=== PATIENT | female | born 1960 | race Caucasian/White ===

== ENCOUNTER → 2023-11-29 08:03 | Outpatient (REF) | payer OTHER, SELFPAY | LOC: HWRAD 08:03 | PROVIDERS: ATTENDING PHYSICIAN Family Medicine | DX: Z13.820 Encounter for screening for osteoporosis (principal); R91.1 Solitary pulmonary nodule; R10.11 Right upper quadrant pain | CPT/HCPCS: 71250; 74150; 77080 ==

== ENCOUNTER 2024-01-24 23:53 | Emergency (ER) | payer OTHER, SELFPAY ==
[2024-01-25 00:04] VITALS: BP 110/73
--- NOTE | 2024-01-25 00:39 | ED.GENMED ---
History of Present Illness
General
Chief Complaint: Abdominal Pain
Source: patient
Exam Limitations: none
Time Seen by Provider: 01/25/24 00:10
History of Present Illness
History of Present Illness:
This is a 63 year old female that comes in with c/o right upper abd pain. States that this has been going on for years. States that since Monday the pain has been constant. States that if she sneezes sometimes she feels that something pops out and
she pushes this back in and the pain goes away. Patient recently had a CT scan of the abd pelvis, Bone density scan and an US in the past. Denies any fever, chills, chest pain, SOB, nausea, vomiting, diarrhea, headache, dizziness, urinary burning.
Past History
Past History
ED Past Medical History: GERD and Other (Scoliosis, Osteoporosis); Negative Asthma, HTN, Hypercholesterolemia or NIDDM
ED Past Surgical History: Tonsilectomy
Social History
Tobacco: Non-smoker
Alcohol: Occasional
Personal:
Living: with family
Employment: Employed (Desk work at school)
Review of Systems
Review of Systems
All Other Systems: ROS reviewed and negative except as documented in HPI and ROS
Constitutional: Reports no symptoms; Denies fever or chills
EENT: Reports no symptoms
Respiratory: Reports no symptoms; Denies cough or trouble breathing
Cardiac: Reports no symptoms; Denies chest pain
ABD/GI: Reports abdominal pain (RUQ); Denies nausea, vomiting or diarrhea
: Reports no symptoms; Denies dysuria, frequency or urgency
Musculoskeletal: Reports no symptoms
Skin: Reports no symptoms
Neurological: Reports no symptoms; Denies dizzy or headache
Psychiatric: Reports no symptoms
Phy Exam
General Physical Exam
General Presentation: well appearing and no apparent distress
General age: appears stated age
General Skin: warm and dry
General Habitus: normal
General Mental: alert
General Hydration: appears well hydrated
ENT Exam
ENT Exam: TM's normal, pharynx normal and neck supple
Eye Exam
Eye Exam: EOMI
Cardiovascular Exam
Cardiovascular Exam: regular rate/rhythm, no edema, no murmur and normal peripheral pulses
Pulmonary Exam
Pulmonary Exam: lungs clear, no respiratory distress, no rales, chest non tender, no crackles, no rhonchi, no wheezing and no cough
Gastrointestinal Exam
Gastrointestinal Exam: normal bowel sounds, non tender, soft, no organomegaly, no pulsatile mass and non distended
Musculoskeletal Exam
Musculoskeletal Exam: full ROM and no edema
Skin Exam
Skin Exam: normal color, warm/dry, no rash and no petechia
Psychiatric Exam
Psychiatric Exam: normal mood/affect
Course
Orders/Labs/Results
Orders:
Orders
01/25/24 00:37
Acetaminophen [Tylenol] 1,000 mg PO NOW STA
01/25/24 00:55
Complete Blood Count/With Diff Urgent
01/25/24 01:45
Comprehensive Metabolic Panel Urgent
Abnormal Lab Results
01/25/24
00:55
RBC 3.83 L 10^6/uL
(4.20-5.40)
Hct 34.8 L %
(37.0-47.0)
MCH 32.9 H pg
(27.0-31.0)
Monocytes % 11.1 H %
(1.7-9.3)
01/25/24 00:55
01/25/24 01:45
Labs unremarkable.
Vital Signs
Initial and Last Documented VS:
Initial Vital Signs
Temp Pulse Resp BP Pulse Ox
97.9 F 64 16 110/73 99
01/25/24 00:04 01/25/24 00:04 01/25/24 00:04 01/25/24 00:04 01/25/24 00:04
Last Documented Vital Signs
Temp Pulse Resp BP Pulse Ox
97.9 F 64 16 110/73 99
01/25/24 00:04 01/25/24 00:04 01/25/24 00:04 01/25/24 00:04 01/25/24 00:04
MDM/Problems Addressed
Differential Diagnosis Includes:
Osteoporosis, degenerative back changes
MDM/Problems Addressed:
This is a 63 year old female that comes in with c/o RUQ pain that has been constant since Monday. States that this pain has been going on for a few years. Patient has had US, CT scan and bone density scans, Colonoscopy and endoscopy. .
states that the next test would be an MRI.
Explained to patient that MRI is not done in the Emergency room. Will check labs. Do not feel that it is necessary to repeat US or CT as patient has no pain with palpation and there is no palpable mass. Explained that this may be coming from her
back as the nerves wrap around to the abdomen. Will check labs and medicate for pain
Back into see patient. Explained that her blood work is normal. Patient states that her pain is getting better. Explained that this could be coming form the back or possible a gas bubble gets stuck there and until it starts to move she has
discomfort. Patient has a doctors appointment with the PCP today. Patient to return with any concerns
Chronic conditions affecting care:
Scoliosis
Acute Exacerbation and/or Progression of Chronic Illness:
Scoliosis
*Pulse Oximetry
Patient hypoxic: no
*EKG
Interpreted by ED Provider?: NA
Rate: EKG- N/A
*Dry Janitor Interpretation
Rate: Dry Janitor- N/A
*Critical Care Note
Total Time (30-74mins, 75-104mins- exclusive of procedures): Not Applicable
ED Attending Note
-
Portions of this chart may have been created with voice recognition software.� Occasional wrong word or��sound alike� substitutions may have occurred due to the inherent limitations of voice recognition software.
Discharge Plan
Departure
Patient Disposition: Home (Routine Discharge)
Date of Disposition: 01/25/24
Time of Disposition: 02:24
Patient with high blood pressure during this ER visit?: No
Condition: Good
Covid-19: Not Applicable
Discharge Problem:
Right upper quadrant abdominal pain
Instructions: Abdominal Pain
Referrals:
Nora Alex DO [Family Provider] - Tomorrow
Activity Restrictions/Additional Instructions:
As discussed, your blood work is normal. Please follow up with the family doctor as scheduled. This may be due to degenerative changes in the back or possible a gas bubble gets caught there and until this moves you have discomfort. IF YOU HAVE ANY
OTHER CONCERNS PLEASE RETURN TO THE EMERGENCY ROOM.
Interventions
Interventions:
ED- Fall Risk Assessment Last Done: 01/25/24 01:54
JC-Cehofn-Bdedwzevdv Assessment Last Done: 01/25/24 01:54
Discharge Date and Time
Print Language: TURKISH
[2024-01-25] MEDS: TYLENOL 1000 MG PO (00:49)
[2024-01-25 01:04] LABS: % Basophils 0.6 % (0-2); % Immature Granulocytes 0.4 % (0-0.5); % Lymphocytes 32.2 % (20.5-51.1); % Monocytes 11.1 % (1.7-9.3); % Neutrophils 53.7 % (42.2-75.2); Absolute Eosinophils 0.1 10^3/uL (0-0.7); Absolute Lymphocytes 1.6 10^3/uL (1.2-3.4); Absolute Monocytes 0.6 10^3/uL (0.1-0.6); Absolute Neutrophils 2.7 10^3/uL (1.4-6.5); Hematocrit 34.8 % (37.0-47.0); Hemoglobin 12.6 g/dL (12.0-16.0); Mean Corp Hgb Conc. 36.2 g/dL (33.0-37.0); Mean Corpuscular Hgb 32.9 pg (27.0-31.0); Mean Corpuscular Volume 90.9 fL (81.0-99.0); Mean Platelet Volume 9.8 fL (7.4-10.4); Nucleated Red Blood Cells % 0 %; Platelet Count 247 10^3/uL (130-400); Red Blood Cell Count 3.83 10^6/uL (4.20-5.40); Red Cell Dist. Width 12.6 % (11.5-14.5); White Blood Cell Count 4.9 10^3/uL (4.8-10.8)
[2024-01-25 02:12] LABS: ALT (SGPT) 27 U/L (0-35); AST (SGOT) 28 U/L (14-36); Alkaline Phosphatase 71 U/L (38-126); Blood Urea Nitrogen 17 mg/dl (7-17); Calcium 9.8 mg/dl (8.4-10.2); Carbon Dioxide 23 mmol/L (22-30); Chloride 107 mmol/L (98-107); Glucose 96 mg/dl (70-99); Potassium 3.9 mmol/L (3.5-5.1); Sodium 137 mmol/L (135-145); Total Bilirubin 0.5 mg/dl (0.2-1.3); Total Protein 6.4 g/dl (6.3-8.2); eGFR > 60.00
[2024-01-25 02:32] VITALS: BP 113/70
== END 2024-01-25 02:33 | disposition home or self-care (01) ==
LOC: EMR 23:53
PROVIDERS: Clinical Nurse Specialist Family Health; EMERGENCY PHYSICIAN Emergency Medicine; FAMILY PHYSICIAN Family Medicine
DX: R10.11 Right upper quadrant pain (principal); K21.9 Gastro-esophageal reflux disease without esophagitis; M81.0 Age-related osteoporosis without current pathological fracture; M41.9 Scoliosis, unspecified
CPT/HCPCS: 99283; 80053; 85025

== ENCOUNTER → 2024-04-05 07:40 | Outpatient (REF) | payer OTHER, SELFPAY | LOC: MRI 3T 07:40 | PROVIDERS: ATTENDING PHYSICIAN Family Medicine | DX: R10.11 Right upper quadrant pain (principal) | CPT/HCPCS: 74183; A9575 ==

== ENCOUNTER 2024-11-08 06:19 | Day surgery (SDC) | payer OTHER, SELFPAY | END 2024-11-08 09:34 | disposition home or self-care (01) | LOC: GI 06:19 | PROVIDERS: ATTENDING PHYSICIAN Internal Medicine Gastroenterology | DX: K20.90 Esophagitis, unspecified without bleeding (principal); K22.89 Other specified disease of esophagus; K44.9 Diaphragmatic hernia without obstruction or gangrene; K31.89 Other diseases of stomach and duodenum; R12 Heartburn; Z87.19 Personal history of other diseases of the digestive system | CPT/HCPCS: 43239; 88305; 88342 ==

== ENCOUNTER → 2025-05-13 15:34 | Outpatient (REF) | payer OTHER, SELFPAY | LOC: RAD 15:34 | PROVIDERS: FAMILY PHYSICIAN Family Medicine | DX: D17.30 Benign lipomatous neoplasm of skin and subcutaneous tissue of unspecified sites (principal) | CPT/HCPCS: 76882 ==